=== PATIENT | male | born 1930 ===

== ENCOUNTER 2016-06-15 11:27 | Day surgery (SDC) | payer MEDICARE ==
[2016-06-07 16:00] VITALS: BMI 20.2
[~2016-06-15 11:27] MED LIST: FAMOTIDINE 20 MG/2 ML VIAL IV PRN; HEPARIN SODIUM,PORCINE 5,000 UNIT/ML 1 ML VIAL SQ ONE; HYDROmorphone 1 MG/ML 1 ML SYRINGE IVP PRN; LIDOCAINE 1% 20 ML VIAL (10MG/ML) FOR IV START INTRADERMA PRN; ONDANSETRON 4 MG/2 ML VIAL IVP ONE
[2016-06-15 12:29] LABS: Glucose,Whole Blood 266 mg/dL (75-99)
[2016-06-15] MEDS ORDERED: LACTATED RINGERS 1,000 ML IV ONE ×2 (12:34→14:52)
[2016-06-15] MEDS: LACTATED RINGERS 1,000 ML IV SCH (12:34)
--- NOTE | 2016-06-15 13:11 | P.GSHP ---
History of Present Illness H&P Date: 06/15/16 Chief Complaint: Right inguinal hernia This a 85-year-old male referred from Dr. Raza. Patient has developed a right inguinal hernia. He presents today for laparoscopic robotic assistance repair. - Constitutional Constitutional: Reports as per HPI Past Medical History Past Medical History: Atrial Fibrillation, COPD, Diabetes Mellitus, Hyperlipidemia, Hypertension, Osteoarthritis (OA), Thyroid Disorder Additional Past Medical History / Comment(s): RT INGUINAL HERNIA History of Any Multi-Drug Resistant Organisms: None Reported Past Surgical History: Adenoidectomy, Cholecystectomy, Hernia Repair, Joint Replacement, Orthopedic Surgery, Tonsillectomy Additional Past Surgical History / Comment(s): LEFT KNEE ARTHROSCOPIC, LEFT KNEE REPLACEMENT,LEFT KIDNEY CYST REMOVED, RIGHT SHOULDER,BILATERAL CATARACT SURGERY, COLONOSCOPY, Past Anesthesia/Blood Transfusion Reactions: No Reported Reaction Past Psychological History: No Psychological Hx Reported Smoking Status: Former smoker Past Alcohol Use History: Occasional Additional Past Alcohol Use History / Comment(s): STARTED SMOKING AT AGE 18 QUIT AT AGE 38 SMOKED 1/2 PPD Past Drug Use History: None Reported - Past Family History Mother Family Medical History: No Reported History Son(s) Family Medical History: Cancer Additional Family Medical History / Comment(s): TESTICLE CANCER Medications and Allergies Home Medications Medication Instructions Recorded Confirmed Type ALPRAZolam [Xanax] 0.25 mg PO HS PRN 04/13/16 06/15/16 History Aspirin 81 mg PO DAILY 04/13/16 06/15/16 History Benazepril HCl [Lotensin] 40 mg PO DAILY 04/13/16 06/07/16 History Fluticasone Propionate [Flovent 50 mcg IH DAILY PRN 04/13/16 06/07/16 History Diskus] Hydrochlorothiazide 25 mg PO DAILY 04/13/16 06/15/16 History Levothyroxine Sodium [Synthroid] 50 mcg PO DAILY 04/13/16 06/07/16 History Metoprolol Succinate [Toprol XL] 100 mg PO 1400 04/13/16 06/15/16 History Pravastatin Sodium [Pravachol] 10 mg PO HS 04/13/16 06/15/16 History amLODIPine [Norvasc] 10 mg PO DAILY 04/13/16 06/07/16 History Acetaminophen Tab [Tylenol Tab] 1,000 mg PO DAILY PRN 06/07/16 06/15/16 History Ca Carbonate/Vitamin D3/Vit K 1 each PO BID 06/07/16 06/15/16 History [Citracal Soft Chew] Cholecalciferol [Vitamin D3] 1,000 unit PO DAILY 06/07/16 06/07/16 History Multivit-Min/FA/Lycopene/Lut 1 each PO DAILY 06/07/16 06/15/16 History [Centrum Silver Tablet] Pregabalin [Lyrica] 50 - 100 mg PO HS 06/07/16 06/15/16 History metFORMIN HCL [Glucophage] 500 mg PO BID 06/07/16 06/15/16 History Allergies Allergy/AdvReac Type Severity Reaction Status Date / Time propoxyphene Allergy Nausea & Verified 06/15/16 12:19 [From ToneN] Vomiting Surgical - Exam Vital Signs Temp Pulse Resp BP Pulse Ox 97.5 F L 62 16 166/66 97 06/15/16 12:30 06/15/16 12:30 06/15/16 12:30 06/15/16 12:30 06/15/16 12:30 - General well developed, no distress - Eyes PERRL - ENT normal pinna - Neck no masses - Respiratory normal expansion - Cardiovascular Rhythm: regular - Abdomen Abdomen: soft, tender Hernia: inguinal (Reducible right inguinal hernia) Results - Labs Abnormal Lab Results - Last 24 Hours (Table) 06/15/16 Range/Units 12:26 POC Glucose (mg/dL) 266 H (75-99) mg/dL Assessment and Plan Plan: Right inguinal hernia. We'll perform laparoscopic robotic system repair.
[2016-06-15] MEDS ORDERED: BUPIVACAIN-EPI 0.25%-1:200,000 30 ML VIAL SQ ONE ×2 (13:17→14:00)
[2016-06-15] MEDS: ceFAZolin 2 GM in SODIUM CHLORIDE 0.9% 100 ML IVPB ONE ×3 (13:19→18:12)
[2016-06-15] MEDS ORDERED: PROPOFOL 10 MG/ML 20 ML VIAL IV ONE (13:27)
[2016-06-15] MEDS ORDERED: GLYCOPYRROLATE 0.2 MG/ML 2 ML VIAL ONE (13:27)
[2016-06-15] MEDS ORDERED: ceFAZolin 10 GM VIAL IVPB ONE (13:27)
[2016-06-15] MEDS ORDERED: MIDAZOLAM 2 MG/2 ML VIAL ONE (13:27)
[2016-06-15] MEDS ORDERED: SUCCINYLCHOLINE CHLORIDE 100 MG/5 ML SYR IV ONE (13:27)
[2016-06-15] MEDS ORDERED: fentaNYL (PF) 50 MCG/ML 2 ML AMP ONE (13:27)
[2016-06-15] MEDS ORDERED: NEOSTIGMINE 1 MG/ML 10 ML VIAL ONE (13:27)
[2016-06-15] MEDS ORDERED: ePHEDrine 50 MG/ML 1 ML AMP ONE (13:27)
[2016-06-15] MEDS ORDERED: LIDOCAINE 1% INJ 10MG/ML (20 ML MDV) ONE (13:27)
[2016-06-15] MEDS ORDERED: ROCURONIUM BROMIDE 10 MG/ML 10 ML VIAL IV ONE (13:27)
[2016-06-15] MEDS ORDERED: SODIUM CHLORIDE 0.9% 100 ML BAG ONE (13:27)
--- NOTE | 2016-06-15 14:50 | P.OP ---
Date of Procedure: 06/15/16 Preoperative Diagnosis: Right inguinal hernia Postoperative Diagnosis: Right inguinal hernia Procedure(s) Performed: Laparoscopic robotic-assisted repair of right inguinal hernia Anesthesia: JELLY Surgeon: Nolan Márquez Estimated Blood Loss (ml): 5 Condition: stable Disposition: PACU Description of Procedure: Lhe patient's placed on the operating table in the supine position. The patient received general anesthesia. The patient's abdomen was prepped and draped in usual sterile fashion. The skin was anesthetized 1% local Xylocaine at the incision sites. Using an 11 blade a skin incision was made at the umbilicus. The fascia was grasped with a Henley and then the peritoneal cavity was entered with the Veress needle. Position of the Veress needle was confirmed with a positive drop test. After adequate insufflation a 5 mm trocar was placed into the peritoneal cavity. The Laparoscope was placed the peritoneal cavity. And a robotic 8 mm trocar was placed in the right lateral position and then another 8 mm robotic trochars placed in the left lateral position. The original 5 mm trocar was exchanged for a 12 mm trocar. The patient was placed in reverse Trendelenburg and then the patient was docked to the robot. Next the peritoneum over top of the hernia was incised and then using blunt and sharp dissection and electrocautery the hernia sac was dissected free from the floor of the inguinal canal. The hernia sac was completely reduced into the peritoneal cavity. And then using the Pro composition stone applicator mesh the hernia was repaired. The peritoneum was then sutured with 20V lock suture. The patient was then undocked the robot. The needle was withdrawn from the peritoneal cavity. The umbilical trocar site was closed with 0 Ethibond suture. The skin was closed interrupted 3-0 Monocryl suture. Dermabond dressing was applied. Patient was sent to recovery in stable condition.
[2016-06-15] MEDS ORDERED: NALOXONE 0.4 MG/ML 1 ML VIAL IV PRN (14:52)
[2016-06-15] MEDS ORDERED: HYDROmorphone 1 MG/ML 1 ML SYRINGE IVP PRN (14:52)
[2016-06-15] MEDS ORDERED: ONDANSETRON 4 MG/2 ML VIAL IVP PRN (14:52)
[2016-06-15] MEDS ORDERED: INSULIN LISPRO (humaLOG) 300 UNIT/3 ML VIAL SQ ONE (15:43)
[2016-06-15 15:52] LABS: Glucose,Whole Blood 276 mg/dL (75-99)
[2016-06-15] MEDS ORDERED: FLUTICASONE 50MCG/SPRAY NASAL 16GM EA NOSTRIL PRN (18:04)
[2016-06-15] MEDS ORDERED: ALPRAZolam 0.25 MG TAB PO PRN (18:04)
[2016-06-15] MEDS: amLODIPine 10 MG TAB PO SCH (19:44)
[2016-06-15 20:41] LABS: Glucose,Whole Blood 240 mg/dL (75-99)
[2016-06-15] MEDS ORDERED: PRAVASTATIN SODIUM 20 MG TAB PO SCH (21:00)
[2016-06-15] MEDS ORDERED: PREGABALIN 50 MG CAP PO SCH (21:00)
[2016-06-15] MEDS: HEPARIN SODIUM,PORCINE 5,000 UNIT/ML 1 ML VIAL SQ SCH (21:46)
[2016-06-15] MEDS: INSULIN LISPRO (humaLOG) 300 UNIT/3 ML VIAL SQ SCH (21:47)
[2016-06-15] MEDS: metFORMIN 500 MG TAB PO SCH (21:47)
[2016-06-15] MEDS: ACETAMINOPHEN TAB 500 MG TAB PO PRN (21:58)
[2016-06-16] MEDS ORDERED: LEVOTHYROXINE 50 MCG TAB PO SCH (06:30)
[2016-06-16 06:58] LABS: Glucose,Whole Blood 301 mg/dL (75-99)
[2016-06-16 07:18] LABS: Basophils % (A) 0 %; CH 32.9; CHCM 34.4; Eosinophils # (A) 0.1 k/uL (0-0.7); Eosinophils % (A) 1 %; HCT 35.2 % (39.0-53.0); HDW 2.41; HGB 11.7 gm/dL (13.0-17.5); Luc # (Auto) 0.07; Luc % (Auto) 1; Lymphocytes # (A) 0.7 k/uL (1.0-4.8); Lymphocytes % (A) 15 %; MCH 31.9 pg (25.0-35.0); MCHC 33.2 g/dL (31.0-37.0); MCV 96.3 fL (80.0-100.0); Mean Platelet Volume 8.7; Monocytes # (A) 0.4 k/uL (0-1.0); Monocytes % (A) 9 %; Neutrophils # (A) 3.6 k/uL (1.3-7.7); Neutrophils % (A) 73 %; RBC 3.66 m/uL (4.30-5.90); RDW 12.8 % (11.5-15.5); WBC 4.9 k/uL (3.8-10.6); WBC (Perox) 5.25
[2016-06-16 07:33] LABS: Calcium 10.3 mg/dL (8.4-10.2); Potassium 3.8 mmol/L (3.5-5.1)
[2016-06-16] MEDS: LACTATED RINGERS 1,000 ML IV SCH (07:43)
[2016-06-16] MEDS: metFORMIN 500 MG TAB PO SCH (07:45)
[2016-06-16] MEDS: HEPARIN SODIUM,PORCINE 5,000 UNIT/ML 1 ML VIAL SQ SCH (07:48)
[2016-06-16] MEDS: INSULIN LISPRO (humaLOG) 300 UNIT/3 ML VIAL SQ SCH (07:48)
[2016-06-16 07:59] VITALS: PULSE 74; RESP 16; TEMP 97
[2016-06-16] MEDS: ACETAMINOPHEN TAB 500 MG TAB PO PRN (08:10)
[2016-06-16] MEDS: amLODIPine 10 MG TAB PO SCH (08:10)
[2016-06-16 08:33] VITALS: BP 160/70
[2016-06-16] MEDS ORDERED: hydrALAZINE HCL 20 MG/ML 1 ML VIAL IVP PRN (08:55)
[2016-06-16] MEDS ORDERED: LISINOPRIL 20 MG TAB PO SCH ×2 (09:00)
[2016-06-16] MEDS ORDERED: HYDROCHLOROTHIAZIDE 25 MG TAB PO SCH (09:00)
[2016-06-16] MEDS ORDERED: ASPIRIN 81 MG CHEW PO SCH (09:00)
[2016-06-16 09:01] LABS: Hemoglobin A1C 9.3 % (4.2-6.1)
[2016-06-16] MEDS ORDERED: CHOLECALCIFEROL 1,000 UNIT TAB PO SCH (12:00)
[2016-06-16] MEDS ORDERED: METOPROLOL SUCCINATE (ER) 100 MG TAB.ER.24H PO SCH (14:00)
[2016-06-17] MEDS ORDERED: LISINOPRIL 20 MG TAB PO SCH (09:00)
--- NOTE | 2016-06-17 19:32 | P.DS ---
Providers Date of admission: 06/15/2016 Expected date of discharge: 06/16/16 Attending physician: Nolan Márquez Consults: 06/15/16 14:52 Consult Physician Routine Consulting Provider: Lux Raza Reason/Comments: Medical management Do you want consulting provider notified?: Yes Primary care physician: Lux Raza [facility] Course: Patient is an 85-year-old male referred from Dr. Raza admitted for elective laparoscopic robotic-assisted repair of right inguinal hernia. Patient tolerated procedure well. Postoperatively, patient had some intractable abdominal pain and was observed overnight with relief of pain in the morning. Patient was deemed able for discharge to home with close follow- up in the outpatient setting. Discharge diagnoses: Right inguinal hernia status post left endoscopic robotic-assisted repair. The above impression and plan have been discussed and directed by Dr. Márquez. Luciana SWEET acting as scribe for Dr. Márquez. Procedures: Laparoscopic robotic-assisted repair of right inguinal hernia Patient Condition at Discharge: Good Plan - Discharge Summary New Discharge Prescriptions: HYDROcodone/APAP 7.5-325MG [Hays 7.5-325] 1 tab PO Q6HR PRN #28 tab PRN Reason: Pain Discharge Medication List ALPRAZolam [Xanax] 0.25 mg PO HS PRN 04/13/16 [History] Aspirin 81 mg PO DAILY 04/13/16 [History] Benazepril HCl [Lotensin] 40 mg PO DAILY 04/13/16 [History] Fluticasone Propionate [Flovent Diskus] 50 mcg IH DAILY PRN 04/13/16 [History] Hydrochlorothiazide 25 mg PO DAILY 04/13/16 [History] Levothyroxine Sodium [Synthroid] 50 mcg PO DAILY 04/13/16 [History] Metoprolol Succinate [Toprol XL] 100 mg PO 1400 04/13/16 [History] Pravastatin Sodium [Pravachol] 10 mg PO HS 04/13/16 [History] amLODIPine [Norvasc] 10 mg PO DAILY 04/13/16 [History] Acetaminophen Tab [Tylenol] 1,000 mg PO DAILY PRN 06/07/16 [History] Ca Carbonate/Vitamin D3/Vit K [Citracal Soft Chew] 1 each PO BID 06/07/16 [ History] Cholecalciferol [Vitamin D3] 1,000 unit PO DAILY 06/07/16 [History] Multivit-Min/FA/Lycopene/Lut [Centrum Silver Tablet] 1 each PO DAILY 06/07/16 [ History] Pregabalin [Lyrica] 50 - 100 mg PO HS 06/07/16 [History] metFORMIN HCL [Glucophage] 500 mg PO BID 06/07/16 [History] HYDROcodone/APAP 7.5-325MG [Hays 7.5-325] 1 tab PO Q6HR PRN #28 tab 06/16/16 [ Rx] Follow up Appointment(s)/Referral(s): Lux Raza MD [Primary Care Provider] - 06/22/16 9:15 am Nolan Márquez MD [STAFF PHYSICIAN] - 06/23/16 3:20 pm Patient Instructions/Handouts: Laparoscopic Herniorrhaphy (DC), Skin Adhesive Care (DC) Activity/Diet/Wound Care/Special Instructions: No heavy lifting, pushing, or pulling items greater than 10 pounds. Soft regular diet Shower daily, no soaking in bath tubs, pools, or hot tubs. No driving while taking pain medication. Notify surgeon with any signs or symptoms of infection, increased pain, or not tolerating diet. Discharge Disposition: HOME SELF-CARE
== END 2016-06-16 10:35 | disposition home or self-care (01) ==
LOC: OR 11:27 → 3SUR 14:48 → OR 06-16 10:35
PROVIDERS: ATTEND Surgery
DX: K40.90 Unilateral inguinal hernia, without obstruction or gangrene, not specified as recurrent (principal); I48.91 Unspecified atrial fibrillation; J44.9 Chronic obstructive pulmonary disease, unspecified; E11.9 Type 2 diabetes mellitus without complications; E78.5 Hyperlipidemia, unspecified; I10 Essential (primary) hypertension; M19.90 Unspecified osteoarthritis, unspecified site; E07.9 Disorder of thyroid, unspecified; F41.9 Anxiety disorder, unspecified; Z79.82 Long term (current) use of aspirin; Z79.899 Other long term (current) drug therapy; Z88.8 Allergy status to other drugs, medicaments and biological substances; Z87.891 Personal history of nicotine dependence
CPT/HCPCS: 49650; 80048; 83036; 85025; C1781; J2250; J1644 ×2; J2710; J0690; J2405; J2001; J3010; J1170; J0330; J2704

== ENCOUNTER → 2016-06-23 | Outpatient (CLI) | payer MEDICARE ==
--- NOTE | 2016-06-23 13:18 | CT ---
EXAMINATION TYPE: CT abdomen pelvis wo con DATE OF EXAM: 06/23/2016 1:04 PM COMPARISON: Ultrasound 05/20/2016 HISTORY: Proteinuria. CKD. Urine retention. CT DLP: 292.50 mGycm Automated exposure control for dose reduction was used. TECHNIQUE: Helical acquisition of images was performed from the lung bases through the pelvis. FINDINGS: LUNG BASES: No significant abnormality is appreciated. LIVER/GB: No significant abnormality is appreciated. PANCREAS: There is a calcification in the region of the pancreatic bed near the expected location of the uncinate process. The pancreatic body and majority of the head appear to be somewhat atrophied. T his could represent a small uncinate process lesion. SPLEEN: No significant abnormality is seen. ADRENALS: No significant abnormality is seen. KIDNEYS: There is a 7mm and 3mm hyperdense lesion involving the right kidney. 1.4 cm hypodense lesion midpole left kidney. 2 mm anterior calyx nonobstructing right renal stone. No hydronephrosis. RETROPERITONEAL ADENOPATHY: None visualized URINARY BLADDER: No significant abnormality is seen. PELVIC ADENOPATHY: None visualized. OSSEOUS STRUCTURES: Arthropathy of the hips and hypertrophic and degenerative change of the spine no jonathan. Canal stenosis involving the lower lumbar spine noted. BOWEL: Diverticulosis of the colon with no CT evidence of diverticulitis. OTHER: Atherosclerotic change of the aorta and vasculature. Small bladder diverticulum noted along th e anterior lateral margin of the bladder. Prostate gland is enlarged. There is a ill-defined hypodens ity near the right inguinal canal which may be related to a fat-containing inguinal hernia. No bowel content. There does appear to be mild inflammation. This extends into the right pelvic basin. IMPRESSION: INDETERMINATE RENAL LESIONS INCLUDING A HYPERDENSE LESION INVOLVING THE RIGHT KIDNEY. LACK OF CONTRAS T LIMITS ASSESSMENT. MAY REPRESENT A HEMORRHAGIC CYST. ADDITIONAL HYPODENSITIES HAVE BEEN SEEN AND RE PRESENT SIMPLE CYSTS BY PREVIOUS ULTRASOUND MILD FULLNESS OF THE UNCINATE PROCESS OF THE PANCREAS WITH AREAS OF CALCIFICATION COULD BE RELATED TO CHRONIC PANCREATITIS. THE FULLNESS RELATIVE TO THE ATROPHIED REMAINING PORTION OF THE PANCREAS PARTI CULARLY ON IMAGE 35 THROUGH 37. FOLLOW-UP MRI COULD BE OBTAINED TO EXCLUDE PANCREATIC LESION. MILD INFLAMMATORY CHANGES NEAR THE RIGHT INGUINAL CANAL WHICH APPEARS TO CONTAIN A FAT-CONTAINING HE RNIA BUT NO BOWEL CORRELATE CLINICALLY. PROSTATE ENLARGEMENT WITH DISTENDED BLADDER CORRELATE FOR URINARY TRACT OUTLET OBSTRUCTION.
== END | disposition home or self-care (01) ==
LOC: RADCTMAIN 12:40
PROVIDERS: ATTEND Family Medicine
DX: N50.89 Other specified disorders of the male genital organs (principal); N32.89 Other specified disorders of bladder; N40.0 Benign prostatic hyperplasia without lower urinary tract symptoms
CPT/HCPCS: 74176

== ENCOUNTER → 2016-11-09 | Outpatient (CLI) | payer MEDICARE ==
--- NOTE | 2016-11-09 14:40 | XR ---
EXAMINATION TYPE: XR foot complete RT DATE OF EXAM: 11/09/2016 COMPARISON: NONE HISTORY: Osteomyelitis of acute TECHNIQUE: 3 views right foot FINDINGS: Hallux valgus deformity is present of the great toe. There is varus deformity of the third fourth and fifth distal digits. No acute fractures are evident. Plantar calcaneal heel spur is present. No suspicious cortical erosion is evident. Degenerative changes at the first tarsal metatarsal juncti on. IMPRESSION: 1. No suspicious changes for osteomyelitis. 2. Chronic changes discussed above
== END | disposition home or self-care (01) ==
LOC: RADXRMAIN 14:18
PROVIDERS: ATTEND Podiatrist Foot Surgery
DX: M86.271 Subacute osteomyelitis, right ankle and foot (principal)

== ENCOUNTER → 2017-02-07 | Outpatient (CLI) | payer MEDICARE ==
--- NOTE | 2017-02-07 15:33 | XR ---
EXAMINATION TYPE: XR lumbosacral spine min 4V , 5 VIEWS DATE OF EXAM ORDERED: 02/07/2017 HISTORY: M54.16 radiculopathy. COMPARISON: None. FINDINGS: There is a gentle levoscoliosis. Vertebral body height and alignment are maintained. There is no spondylolysis or spondylolisthesis. T here is mild, diffuse disc space loss. There is extensive hypertrophic spondylosis and spondylosis de formans. There is mild facet arthropathy in the lower lumbar facets. The pedicles are intact. There a re scattered, well-defined calcifications distributed throughout the abdomen. I'm uncertain as to the etiology of these. IMPRESSION: 1. NO ACUTE OSSEOUS LESION. 2. MODERATELY SEVERE DEGENERATIVE CHANGE.
== END | disposition home or self-care (01) ==
LOC: RADXRMAIN 14:43
PROVIDERS: ATTEND Family Medicine
DX: M47.27 Other spondylosis with radiculopathy, lumbosacral region (principal)
CPT/HCPCS: 72110

== ENCOUNTER → 2017-03-08 | Outpatient (CLI) | payer MEDICARE ==
--- NOTE | 2017-03-08 09:54 | US ---
EXAMINATION TYPE: US venous doppler duplex LE DATE OF EXAM: 03/08/2017 9:00 AM COMPARISON: NONE CLINICAL HISTORY: M79.604,M79.605 Pain in right and left leg. Wound bottom of right foot for 8 month s, diabetes LOWER EXTREMITY VENOUS INSUFFICIENCY SIDE PERFORMED: bilateral 1) Color flow is present and patency is documented in the following vessels. No DVT or SVT is noted . EIV Common Femoral Vein Deep Femoral Vein Femoral Vein Popliteal Vein Proximal Calf Veins Greater Saph Vein Upper Small Saph Vein 2) There is venous reflux noted at the following venous levels: Minimal reflux noted right greater saph. vein. Complex anechoic area right popliteal fossa = 5.5 x 1.8 x 4.2cm, probable Leslie's cyst There is moderate-sized popliteal cyst in the right lower extremity marked in mid aspect of study. IMPRESSION: No ultrasound evidence for acute DVT in either lower extremity.
== END | disposition home or self-care (01) ==
LOC: RADUSWWP 08:19
PROVIDERS: ATTEND Family Medicine
DX: M79.604 Pain in right leg (principal); M79.605 Pain in left leg; E13.621 Other specified diabetes mellitus with foot ulcer
CPT/HCPCS: 93923; 93970

== ENCOUNTER → 2017-03-16 | Outpatient (CLI) | payer MEDICARE ==
[2017-03-16 16:13] LABS: CH 32.7; CHCM 33.7; HCT 35.6 % (39.0-53.0); HDW 2.23; HGB 11.5 gm/dL (13.0-17.5); MCH 31.4 pg (25.0-35.0); MCHC 32.3 g/dL (31.0-37.0); MCV 97.4 fL (80.0-100.0); Mean Platelet Volume 8.5; RBC 3.65 m/uL (4.30-5.90); RDW 13.3 % (11.5-15.5); WBC 5.1 k/uL (3.8-10.6)
[2017-03-16 16:18] LABS: Appearance,Urine Clear (Clear); Bilirubin,Urine Negative (Negative); Glucose,Urine (UA) Negative (Negative); Ketones,Urine Negative (Negative); Leukocyte Esterase,Urine Negative (Negative); Mucus,Urine Rare /hpf; Nitrite,Urine Negative (Negative); Particle Count 754; Protein,Urine 1+ (Negative); RBC,Urine <1 /hpf (0-5); Specific Gravity,Urine 1.011 (1.001-1.035); UA Billing (MACRO vs. MICRO) MICRO; Urobilinogen,Urine <2.0 mg/dL (<2.0); WBC,Urine 1 /hpf (0-5)
[2017-03-16 16:25] LABS: Calcium 10.7 mg/dL (8.4-10.2); Magnesium 2.1 mg/dL (1.6-2.3); Potassium 3.9 mmol/L (3.5-5.1); Total Bilirubin 0.4 mg/dL (0.2-1.3); Total Protein 6.4 g/dL (6.3-8.2)
[2017-03-17 01:00] LABS: Iron Saturation 21.61 (15.00-50.00)
[2017-03-17 05:34] LABS: Urine Creatinine 74.7 mg/dL
== END | disposition home or self-care (01) ==
LOC: LABWHC1 15:35
PROVIDERS: ATTEND Internal Medicine
DX: E55.9 Vitamin D deficiency, unspecified (principal); N39.0 Urinary tract infection, site not specified; D64.1 Secondary sideroblastic anemia due to disease; N18.3 Chronic kidney disease, stage 3 (moderate); N25.81 Secondary hyperparathyroidism of renal origin
CPT/HCPCS: 36415; 80053; 81001; 82043; 82306; 82570; 82728; 83540; 83550; 83735; 83970; 84100; 84156; 84550; 85027

== ENCOUNTER → 2017-03-24 | Outpatient (CLI) | payer MEDICARE ==
--- NOTE | 2017-03-26 13:01 | MR ---
EXAMINATION TYPE: MR lumbar spine wo con DATE OF EXAM: 03/24/2017 COMPARISON: NONE HISTORY: 86-year-old male Back pain TECHNIQUE: Multiplanar, multisequence images of the lumbar spine were acquired. Findings: Vertebral body heights are preserved and alignment is maintained. No suspicious bone marrow placement. Mild heterogeneity of marrow signal. Variable mild intervertebral disc desiccation but with bulging discs. Additional facet arthropathy mi d to lower lumbar spine with ligamentum flavum thickening. Conus medullaris is normal. At T12-L1, no canal or foraminal stenosis. At L1-L2, no canal or foraminal stenosis. At L2-L3, diffuse disc bulge with facet arthropathy and ligamentum flavum thickening. Changes result in mild narrowing of the spinal canal with minimal inferior foraminal narrowing on the left. At L3-L4, diffuse disc bulge with ligamentum flavum thickening and facet arthropathy. Changes result in mild spinal canal stenosis with mild bilateral neuroforaminal stenosis. At L4-L5, there is hypertrophic facet arthropathy with ligamentum flavum thickening and bulging disc. Changes result in moderate to severe spinal canal stenosis at this level with mild left neuroforamin al stenosis. At L5-S1, there is facet arthropathy with ligamentum flavum thickening and diffuse bulging disc. No s giuliana canal stenosis. Changes result in moderate left neuroforaminal stenosis. Disc material and thic kened ligamentum flavum abuts both traversing S1 nerve roots. 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 A few cysts are noted within the kidneys measuring up to 3.0 cm on the left. No prevertebral or parav ertebral soft tissue is seen. Ectasia of the upper abdominal aorta at 2.7 cm. IMPRESSION: 1. Ihdg-pb-[id number] multilevel degenerative disc disease. There is superimposed facet arthropathy and ligamentum flavum thickening. 2. Changes are greatest at L4-L5 where there is a moderate to severe spinal canal stenosis. Mild left neuroforaminal stenosis. 3. Facet arthropathy, ligamentum flavum thickening, and bulging disc causes moderate left neuroforami nal stenosis at L5-S1. However, there appears to be abutment of both traversing S1 nerve roots at thi s level. 4. Mild spinal canal narrowing at both L2-L3 and L3-L4.
== END | disposition home or self-care (01) ==
LOC: RADMRIMAIN 13:38
PROVIDERS: ATTEND Family Medicine
DX: M48.061 Spinal stenosis, lumbar region without neurogenic claudication (principal); M99.73 Connective tissue and disc stenosis of intervertebral foramina of lumbar region; M51.17 Intervertebral disc disorders with radiculopathy, lumbosacral region; M46.97 Unspecified inflammatory spondylopathy, lumbosacral region; M24.28 Disorder of ligament, vertebrae
CPT/HCPCS: 72148

== ENCOUNTER → 2017-04-17 | Outpatient (CLI) | payer MEDICARE ==
--- NOTE | 2017-04-18 08:46 | MR ---
EXAMINATION TYPE: MR foot RT wo/w con DATE OF EXAM: 04/17/2017 COMPARISON: Right foot radiograph dated 11/09/2016. HISTORY: Diabetes mellitus with ulceration of the soft tissues of the plantar aspect of the first dig it. CONTRAST: Standard multiplanar, multisequence MRI departmental protocol utilizing 6.5 mL intravenous Gadavist g adolinium contrast. FINDINGS: On T1 nonfat sequences there is T1 hypointense edema at the plantar surface of the first metatarsal p halangeal joint spanning 3.9 cm in anterior posterior dimension without underlying focal fluid collec tion. There is no cortical erosion or T1 hypointense bone marrow signal to suggest osteomyelitis alth ough the subcutaneous edema/inflammatory change abuts the inferior cortical surface. At the dorsal as pect of the first metatarsal phalangeal joint there is also a small effusion that is T2 hyperintense and T1 nonfat sat hypointense measuring 1.1 x 0.6 cm in anterior posterior by saini caudal dimension. No increased signal is seen of the distal flexor tendons to suggest reactive tendinopathy. T1 hypoin tense infiltrating subcutaneous edema to a lesser degree is seen throughout the entirety of the right lower extremity. There is enhancement of the inflammatory change without periosteal or osseous marro w enhancement or focal peripherally enhancing abscess. Marginal osteophytes, bony irregularity and subchondral loss are seen at the talonavicular joint and tarsometatarsal joints compatible with moderate arthropathy of the midfoot. This is also seen in the visualized portions of the subtalar joint. IMPRESSION: 1. Phlegmonous inflammatory change and focal edema at the site of ulceration at the plantar aspect of the first metatarsal phalangeal joint and dorsal to the first proximal phalanx with small amount of joint fluid, likely reactive. No MR evidence of osteomyelitis or bone marrow replacing process. No fo ta fluid collection to suggest abscess. Additionally there is moderate diffuse infiltrating subcutan eous edema throughout the right lower extremity. 2. Moderate midfoot arthropathy.
== END | disposition home or self-care (01) ==
LOC: RADMRIMAIN 12:36
PROVIDERS: ATTEND Family Medicine
DX: E11.621 Type 2 diabetes mellitus with foot ulcer (principal); M12.871 Other specific arthropathies, not elsewhere classified, right ankle and foot
CPT/HCPCS: 73720; A9581

== ENCOUNTER → 2017-05-01 | Outpatient (CLI) | payer MEDICARE ==
[2017-04-28 11:33] VITALS: BMI 21.7
--- NOTE | 2017-05-01 13:26 | P.CONS ---
History of Present Illness - Reason for Consult Consult date: 05/01/17 - Chief Complaint Lower back pain - History of Present Illness This is a pleasant 86-year-old male with chronic history of lower back pain with radiation to the right lower extremity to the mid calf area. The patient denies any numbness or tingling in the lower extremities. He denies any bowel or bladder dysfunction or any weight loss recently. The pain does not wake the patient up at night. The patient has a history of diabetes with new ulcer on his right foot that is being treated and followed by vascular and infectious services. The patient states that he used to get epidural steroid injection once every 6 months when he used to live in [place] and it usually helps his pain significantly. 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 Past Medical History Past Medical History: Atrial Fibrillation, COPD, Diabetes Mellitus, Hyperlipidemia, Hypertension, Osteoarthritis (OA), Renal Disease, Skin Disorder , Thyroid Disorder Additional Past Medical History / Comment(s): stage 3 kidney disease-sees kidney , RT FOOT WOUND History of Any Multi-Drug Resistant Organisms: None Reported Past Surgical History: Adenoidectomy, Cholecystectomy, Hernia Repair, Joint Replacement, Orthopedic Surgery, Tonsillectomy Additional Past Surgical History / Comment(s): LEFT KNEE ARTHROSCOPIC, LEFT KNEE REPLACEMENT,LEFT KIDNEY CYST REMOVED, RIGHT SHOULDER,BILATERAL CATARACT SURGERY, COLONOSCOPY, Past Anesthesia/Blood Transfusion Reactions: Previous Problems w/ Anesthesia Additional Past Anesthesia/Blood Transfusion Reaction / Comm: BP went very low w /one of surgeries Past Psychological History: No Psychological Hx Reported Smoking Status: Former smoker Past Alcohol Use History: Occasional Additional Past Alcohol Use History / Comment(s): STARTED SMOKING AT AGE 18 QUIT AT AGE 38 SMOKED 1/2 PPD Past Drug Use History: None Reported - Past Family History Mother Family Medical History: No Reported History Son(s) Family Medical History: Cancer Additional Family Medical History / Comment(s): TESTICLE CANCER Medications and Allergies Home Medications Medication Instructions Recorded Confirmed Type ALPRAZolam [Xanax] 0.25 mg PO HS PRN 04/13/16 05/01/17 History Aspirin 81 mg PO DAILY 04/13/16 05/01/17 History Benazepril HCl [Lotensin] 40 mg PO DAILY 04/13/16 05/01/17 History Hydrochlorothiazide 25 mg PO DAILY 04/13/16 05/01/17 History Levothyroxine Sodium [Synthroid] 50 mcg PO DAILY 04/13/16 05/01/17 History Pravastatin Sodium [Pravachol] 10 mg PO HS 04/13/16 05/01/17 History amLODIPine [Norvasc] 10 mg PO DAILY 04/13/16 05/01/17 History Acetaminophen Tab [Tylenol] 1,000 mg PO DAILY PRN 06/07/16 05/01/17 History Calcium Carb/Vitamin D3/Vit K1 1 each PO BID 06/07/16 05/01/17 History [Citracal Soft Chew] Cholecalciferol [Vitamin D3] 1,000 unit PO DAILY 06/07/16 05/01/17 History Multivit-Min/FA/Lycopen/Lutein 1 each PO DAILY 06/07/16 05/01/17 History [Centrum Silver Tablet] Pregabalin [Lyrica] 50 - 100 mg PO HS 06/07/16 05/01/17 History metFORMIN HCL [Glucophage] 1,000 mg PO QAM 06/07/16 05/01/17 History Linagliptin [Tradjenta] 5 mg PO DAILY 02/23/17 05/01/17 History Tamsulosin HCl [Flomax] 0.4 mg PO DAILY 02/23/17 05/01/17 History Carvedilol [Coreg] 25 mg PO DAILY 05/01/17 05/01/17 History glipiZIDE [Glucotrol] 5 mg PO DAILY 05/01/17 05/01/17 History Allergies Allergy/AdvReac Type Severity Reaction Status Date / Time propoxyphene Allergy Nausea & Verified 05/01/17 12:13 [From Darbarrycet-N] Vomiting Physical Exam - Constitutional General appearance: average body habitus - Respiratory Respiratory: bilateral: CTA - Cardiovascular Rhythm: regular - Integumentary Integumentary: no calor, no cellulitis, no cyanotic, no decreased turgor, no flushed, no jaundiced, no normal, no normal turgor, no pale, no rash, no ulcer - Psychiatric Psychiatric: A&O x's 3, appropriate affect, intact judgment & insight Neuro exam of the lower extremities showed normal muscle strength for knee flexion and extension ankle flexion and extension hip flexion adduction and abduction bilaterally and symmetrically. He has his left foot and aborted due to his the diabetic ulcer. Straight leg raising test negative bilaterally. He has mild tenderness in the right lumbar paravertebral area. No sacroiliac joint tenderness. No greater trochanter tenderness. He has decreased flexion of the lumbar spine. Facet loading test is positive on the right side. Assessment and Plan Plan: This is an 86-year-old male with history of diabetes, diabetic right foot ulcer , and lower back pain with radiation to the right lower extremity due to lumbar stenosis at the L4-5 level. The muscle strength and the deep tendon reflexes are normal in the lower extremities bilaterally. The patient usually gets good relief of his pain after lumbar epidural steroid injection that usually last for 6 months. At this point I will schedule patient is a patient to have interlaminar lumbar epidural steroid injection at the L4-5 level in the right paramedian approach under fluoroscopic guidance. The patient usually gets only one lumbar epidural steroid injection and we'll continue the same way he will call us back if he has any problems after his first injection. I thank you for the referral.
[2017-05-01 13:32] VITALS: BP 149/72; PULSE 63; RESP 16
== END | disposition home or self-care (01) ==
LOC: PNWHC3 12:04
PROVIDERS: ATTEND Anesthesiology
DX: M48.061 Spinal stenosis, lumbar region without neurogenic claudication (principal); E11.621 Type 2 diabetes mellitus with foot ulcer; Z87.891 Personal history of nicotine dependence; I48.91 Unspecified atrial fibrillation; J44.9 Chronic obstructive pulmonary disease, unspecified; E78.5 Hyperlipidemia, unspecified; I10 Essential (primary) hypertension; Z79.899 Other long term (current) drug therapy; Z79.82 Long term (current) use of aspirin; Z88.5 Allergy status to narcotic agent
CPT/HCPCS: 99211

== ENCOUNTER → 2017-06-28 | Outpatient (CLI) | payer MEDICARE ==
--- NOTE | 2017-07-05 13:33 | P.ARTDOP ---
Arterial Doppler LOWER EXTREMITY ARTERIAL DOPPLER: DATE OF SERVICE: 06/28/2017 multiphasic bilaterally throughout Reason for study: Right foot ulcer. Doppler waveforms: Multiphasic bilaterally throughout. Pulse volume recording: Fairly normal configuration. Pressure gradients: Only at the foot level. Ankle-brachial indices: Greater than 1 on the right and cannot be occluded on the left. Toe pressures: 48 on the right, 63 on the left Impression: Suspect moderate distal disease. Perfusion marginal for healing. Clinical correlation recommended.
== END | disposition home or self-care (01) ==
LOC: RADUSWWP 14:25
PROVIDERS: ATTEND Internal Medicine Infectious Disease
DX: E13.621 Other specified diabetes mellitus with foot ulcer (principal)
CPT/HCPCS: 93923

== ENCOUNTER → 2017-07-12 | Outpatient (CLI) | payer MEDICARE ==
[2017-07-12 18:19] LABS: Calcium 11.5 mg/dL (8.4-10.2); Magnesium 2.1 mg/dL (1.6-2.3); Phosphorus 3.2 mg/dL (2.5-4.5)
[2017-07-13 01:43] LABS: Parathyroid Hormone Intact 60.7 pg/mL (14.0-72.0)
== END | disposition home or self-care (01) ==
LOC: LABWHC1 16:51
PROVIDERS: ATTEND Family Medicine
DX: R42 Dizziness and giddiness (principal); E11.21 Type 2 diabetes mellitus with diabetic nephropathy; R80.9 Proteinuria, unspecified; N18.3 Chronic kidney disease, stage 3 (moderate)
CPT/HCPCS: 36415; 82306; 82310; 83735; 83970; 84100

== ENCOUNTER → 2017-07-25 | Outpatient (CLI) | payer MEDICARE ==
[2017-07-25 16:30] LABS: T4, Free (Free Thyroxine) 1.36 ng/dL (0.78-2.19)
[2017-07-25 17:13] LABS: Ionized Calcium 5.8 mg/dL (4.5-5.3)
== END | disposition home or self-care (01) ==
LOC: LABWHC1 14:59
PROVIDERS: ATTEND Family Medicine
DX: E83.52 Hypercalcemia (principal); R26.89 Other abnormalities of gait and mobility; R42 Dizziness and giddiness; R54 Age-related physical debility
CPT/HCPCS: 36415; 80048; 82330; 84439; 84443; 85025; 85652; 86140

== ENCOUNTER → 2017-08-01 | Outpatient (CLI) | payer MEDICARE ==
[2017-08-01 15:46] LABS: Albumin 3.4 g/dL (3.5-5.0); Calcium 10.6 mg/dL (8.4-10.2); Potassium 4.2 mmol/L (3.5-5.1); Total Bilirubin 0.3 mg/dL (0.2-1.3); Total Protein 5.8 g/dL (6.3-8.2)
== END | disposition home or self-care (01) ==
LOC: LABWHC1 15:14
PROVIDERS: ATTEND Family Medicine
DX: E83.52 Hypercalcemia (principal); R26.89 Other abnormalities of gait and mobility; M25.551 Pain in right hip
CPT/HCPCS: 36415; 80048; 80053; 85025; 85652; 86140

== ENCOUNTER → 2017-10-02 | Outpatient (CLI) | payer MEDICARE ==
[2017-10-02 15:23] LABS: Basophils % (A) 0 %; Eosinophils # (A) 0.2 k/uL (0-0.7); Eosinophils % (A) 3 %; HCT 33.5 % (39.0-53.0); Lymphocytes # (A) 1.2 k/uL (1.0-4.8); Lymphocytes % (A) 22 %; MCH 30.9 pg (25.0-35.0); MCHC 32.9 g/dL (31.0-37.0); MCV 93.9 fL (80.0-100.0); Mean Platelet Volume 8.3; Monocytes # (A) 0.4 k/uL (0-1.0); Monocytes % (A) 8 %; Neutrophils # (A) 3.5 k/uL (1.3-7.7); Neutrophils % (A) 66 %; Platelet Count 155 k/uL (150-450); RBC 3.56 m/uL (4.30-5.90); WBC 5.4 k/uL (3.8-10.6)
[2017-10-02 15:40] LABS: Calcium 10.6 mg/dL (8.4-10.2); Magnesium 1.9 mg/dL (1.6-2.3); Potassium 4.2 mmol/L (3.5-5.1)
[2017-10-03 00:45] LABS: Vitamin D 25 Hydroxy 36.4 ng/mL (30.0-100.0)
[2017-10-03 02:03] LABS: Parathyroid Hormone Intact 120.9 pg/mL (14.0-72.0)
== END | disposition home or self-care (01) ==
LOC: LABWHC1 14:59
PROVIDERS: ATTEND Family Medicine
DX: L57.0 Actinic keratosis (principal); M25.551 Pain in right hip; Z91.81 History of falling
CPT/HCPCS: 36415; 80048; 82306; 83735; 83970; 85025

== ENCOUNTER → 2017-11-03 | Outpatient (CLI) | payer MEDICARE ==
--- NOTE | 2017-11-05 08:34 | MR ---
EXAMINATION TYPE: MR angio head wo con, MR brain wo con DATE OF EXAM: 11/03/2017 COMPARISON: 05/18/2017 HISTORY: Dizziness and headaches TECHNIQUE: Multiplanar, multisequence images of the brain and brainstem is performed without IV contrast. Time o f flight images focusing on the [place] of [place] were performed without contrast. 2-D and 3-D postpr ocessing imaging is performed. FINDINGS: Diffusion weighted images demonstrate no evidence of a recent infarct or other diffusion ab normality. There is no extra-axial fluid collection. Periventricular and subcortical foci of T2/FLAI R hyperintensity are present in addition to a small old lacunar injury/area of gliosis within the lef t [place]. The ventricular system and cisternal spaces demonstrate symmetric prominence compatible with age-related volume loss. Accordingly there is thinning of the corpus callosum globally. Cerebral aqu educt is patent. Additionally more pronounced subarachnoid spaces are seen in the frontal regions, le ft greater than right compatible with subdural hygromas. Midline structures demonstrate normal morphology. The craniocervical junction appears within normal limits. The dural venous sinuses appear patent. There is mild mucosal thickening within the ethmoid s inuses and partial opacification of the bilateral mastoid air cells, left greater than right. Secreti ons are maintained within the posterior nasopharynx. Remaining visualized paranasal sinuses are well aerated. The globes are intact. The common carotid arteries are patent without hemodynamically significant stenosis, focal aneurysmal outpouching, or dissection. The [place] of [place] is intact. There is slight artifact in the middle c erebral arteries and anterior cerebral arteries as well as the anterior communicating artery although no gross evidence of sizable aneurysm or focal stenosis is seen. The vertebral arteries are codomina nt and patent as is the basilar artery. IMPRESSION: 1. No evidence of acute infarct or midline shift. 2. 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 3. 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 4. Partial opacification of the mastoid air cells, left greater than right. Correlate with pain to as sess for mastoiditis. 5. No evidence of focal stenosis, dissection or intracranial aneurysm.
== END | disposition home or self-care (01) ==
LOC: RADMRIMAIN 17:43
PROVIDERS: ATTEND Psychiatry & Neurology Neurology
DX: I73.9 Peripheral vascular disease, unspecified (principal); R90.89 Other abnormal findings on diagnostic imaging of central nervous system; Z87.828 Personal history of other (healed) physical injury and trauma
CPT/HCPCS: 70544; 70551

== ENCOUNTER → 2017-11-13 | Outpatient (CLI) | payer MEDICARE ==
[2017-11-13 14:58] LABS: Appearance,Urine Clear (Clear); Bilirubin,Urine Negative (Negative); Blood,Urine Negative (Negative); Color,Urine Light Yellow; Glucose,Urine (UA) Negative (Negative); Ketones,Urine Negative (Negative); Leukocyte Esterase,Urine Trace (Negative); Mucus,Urine Rare /hpf; Nitrite,Urine Negative (Negative); Protein,Urine 1+ (Negative); RBC,Urine <1 /hpf (0-5); Specific Gravity,Urine 1.012 (1.001-1.035); Urobilinogen,Urine <2.0 mg/dL (<2.0); WBC,Urine 2 /hpf (0-5)
[2017-11-13 15:06] LABS: Creatinine,Urine Random 57.3 mg/dL
[2017-11-13 15:15] LABS: Calcium 10.7 mg/dL (8.4-10.2); Potassium 4.3 mmol/L (3.5-5.1)
== END | disposition home or self-care (01) ==
LOC: LABWHC1 13:58
PROVIDERS: ATTEND Internal Medicine
DX: N18.3 Chronic kidney disease, stage 3 (moderate) (principal)
CPT/HCPCS: 36415; 80048; 81001; 82043; 82570; 83883; 84156; 86334

== ENCOUNTER → 2018-01-01 | Outpatient (CLI) | payer MEDICARE ==
--- NOTE | 2018-01-01 15:50 | XR ---
EXAMINATION TYPE: XR bone survey complete DATE OF EXAM: 01/01/2018 COMPARISON: None HISTORY: Monoclonal gammopathy TECHNIQUE: Multiple examinations were obtained for evaluation of the osseous structures. FINDINGS: CHEST: Heart size is normal. Pulmonary vasculature is normal. Suspicious lytic or sclerotic lesions a re not identified. Postsurgical changes at the right shoulder. Cervical spine: Degenerative changes are present. No lytic or sclerotic lesions are evident. Facet de generative changes are present. Degenerative disc changes are present. Bilateral humeri: Postsurgical changes at the right humeral head. Osteoarthritic degenerative changes at bilateral glenohumeral joint spaces. No suspicious lytic or sclerotic lesions are evident. Skull: Sella is unremarkable. No lytic or sclerotic lesions are evident. Patient is edentulous. Pelvis: Mild osteoarthritic degenerative changes at the bilateral hips. Sacroiliac joints are patent. No lytic or sclerotic lesions are evident. Scattered small calcifications over the inferior pole lef t kidney. Thoracic spine: 2 view thoracic spine is obtained. There are 12 thoracic type vertebral bodies. Pedic les are intact. Disc heights are preserved. No lytic or sclerotic lesions are evident. Lumbar spine: Spondylosis is present. There 5 lumbar-type vertebral bodies. The pedicles are intact. Alignment is normal. Vertebral body heights are preserved. Femurs: Bilateral femurs are examined in AP projections. Vascular calcification is present. Degenerat kory joint changes are at the bilateral hips. No lytic or sclerotic lesions are evident. Left knee pro sthesis is present. IMPRESSION: 1. No suspicious lytic lesions identified
== END | disposition home or self-care (01) ==
LOC: RADXRMAIN 11:33
PROVIDERS: ATTEND Internal Medicine Hematology & Oncology
DX: D47.2 Monoclonal gammopathy (principal); I12.9 Hypertensive chronic kidney disease with stage 1 through stage 4 chronic kidney disease, or unspecified chronic kidney disease; N18.9 Chronic kidney disease, unspecified; E11.9 Type 2 diabetes mellitus without complications
CPT/HCPCS: 77075

== ENCOUNTER → 2018-02-09 | Outpatient (CLI) | payer MEDICARE ==
[2018-02-09 10:56] LABS: HCT 30.5 % (39.0-53.0); HGB 9.6 gm/dL (13.0-17.5); Hypochromasia Slight; MCH 31.3 pg (25.0-35.0); MCHC 31.5 g/dL (31.0-37.0); MCV 99.6 fL (80.0-100.0); Mean Platelet Volume 7.4; Platelet Count 156 k/uL (150-450); RBC 3.06 m/uL (4.30-5.90); RDW 13.6 % (11.5-15.5); WBC 6.6 k/uL (3.8-10.6)
[2018-02-09 12:15] LABS: Albumin 3.5 g/dL (3.5-5.0); Bilirubin, Delta 0.4 mg/dL (0.0-0.2); C Reactive Protein 24.5 mg/L (<10.0); Calcium 10.2 mg/dL (8.4-10.2); Potassium 4.6 mmol/L (3.5-5.1); Total Bilirubin 0.4 mg/dL (0.2-1.3); Total Protein 6.1 g/dL (6.3-8.2)
[2018-02-09 12:41] LABS: Erythrocyte Sedimentation Rate 35 mm/hr (0-15)
== END | disposition home or self-care (01) ==
LOC: LABWHC1 10:32
PROVIDERS: ATTEND Family Medicine
DX: E11.621 Type 2 diabetes mellitus with foot ulcer (principal); L97.509 Non-pressure chronic ulcer of other part of unspecified foot with unspecified severity
CPT/HCPCS: 36415; 80053; 82248; 83036; 84134; 85027; 85652; 86140

== ENCOUNTER 2018-03-02 11:55 | Day surgery (SDC) | payer MEDICARE ==
[2018-03-01 13:47] VITALS: BMI 22.3
[~2018-03-02 11:55] MED LIST changes: +ERTAPENEM 1 GM in SODIUM CHLORIDE 0.9% 50 ML IVPB ONE; -FAMOTIDINE 20 MG/2 ML VIAL IV PRN; -HEPARIN SODIUM,PORCINE 5,000 UNIT/ML 1 ML VIAL SQ ONE; -HYDROmorphone 1 MG/ML 1 ML SYRINGE IVP PRN; -LIDOCAINE 1% 20 ML VIAL (10MG/ML) FOR IV START INTRADERMA PRN; -ONDANSETRON 4 MG/2 ML VIAL IVP ONE
[2018-03-02] MEDS ORDERED: LIDOCAINE 1% INJ 10MG/ML (20 ML MDV) ONE (12:09)
[2018-03-02] MEDS ORDERED: LIDOCAINE 1% INJ 10MG/ML (20 ML MDV) SQ ONE (12:25)
[2018-03-02 12:43] VITALS: RESP 18; TEMP 98
[2018-03-02 13:04] VITALS: BP 124/58; PULSE 64
--- NOTE | 2018-03-02 14:24 | IR ---
EXAMINATION TYPE: IR cvc insert >=5 years DATE OF EXAM: 03/02/2018 COMPARISON: NONE CLINICAL HISTORY: Infection Needs long-term intravenous access for antibiotics. PROCEDURE: After informed consent, the skin overlying the left basilic vein was localized with ultrasound and no jonathan to be compressible and patent. An ultrasound image was obtained and submitted on the patient's c [place]. The overlying skin was prepped and draped and Lidocaine was used for local anesthesia. A skin annette was made with a scalpel. Access was gained to the vein under ultrasound guidance with a 21 gau ge needle and a 0.018 inch wire was advanced. Access site was dilated with Peel-Away sheath and cath eter tailored to the appropriate length and advanced such that the distal tip is at the cavoatrial ju nction. Spot image was obtained verifying placement. Catheter was fixed to the skin and a sterile d ressing was placed following hemostasis. Catheter was aspirated and flushed with saline. Patient wa s discharged in stable condition without complication. Maximal barrier technique is utilized. Ultras ound image is documented on the chart. Ultrasound used with sterile technique. Fluoro time and fluoroscopic images submitted to document procedure: 38 intraoperative images, 1.5 mi nutes fluoroscopy time IMPRESSION: STATUS POST ULTRASOUND AND FLUOROSCOPIC GUIDED PICC LINE PLACEMENT, READY FOR USE. THIS PROCEDURE WAS PERFORMED BY THE UNDERSIGNED.
[2018-03-05 06:17] LABS: Glucose,Whole Blood 217 mg/dL (75-99)
== END 2018-03-02 14:00 | disposition home or self-care (01) ==
LOC: CATHCVL 11:55
PROVIDERS: ATTEND Radiology Diagnostic Radiology
DX: E11.621 Type 2 diabetes mellitus with foot ulcer (principal); E11.69 Type 2 diabetes mellitus with other specified complication; M86.9 Osteomyelitis, unspecified; I48.91 Unspecified atrial fibrillation; Z79.84 Long term (current) use of oral hypoglycemic drugs; J44.9 Chronic obstructive pulmonary disease, unspecified; E78.5 Hyperlipidemia, unspecified; E07.9 Disorder of thyroid, unspecified; M19.90 Unspecified osteoarthritis, unspecified site; I10 Essential (primary) hypertension; Z87.891 Personal history of nicotine dependence; Z79.82 Long term (current) use of aspirin; Z79.899 Other long term (current) drug therapy; Z88.5 Allergy status to narcotic agent
CPT/HCPCS: 36569; 76937; 77001; C1751; C1769; J2001; J1335

== ENCOUNTER → 2018-03-05 | Outpatient (CLI) | payer MEDICARE | END | disposition home or self-care (01) | LOC: RADUSWWP 09:02 | PROVIDERS: ATTEND Family Medicine | DX: E13.621 Other specified diabetes mellitus with foot ulcer (principal) | CPT/HCPCS: 93923 ==

== ENCOUNTER → 2018-03-20 | Outpatient (CLI) | payer MEDICARE ==
--- NOTE | 2018-03-20 23:13 | CT ---
EXAMINATION TYPE: CT hip RT wo con DATE OF EXAM: 03/20/2018 COMPARISON: None HISTORY: right hip pain following fall CT DLP: 371.5 mGycm Automated exposure control for dose reduction was used. Helical imaging through the right hip. Taylor l and sagittal reconstructions. FINDINGS: There is marginal spurring present. Subchondral geode formation is present. Hypertrophic change at th e acetabulum corresponds to some hypertrophic change along the femoral neck. Small ossific densities are noted at the level of the joint, suspect there may be some chondrocalcinosis. Joint space loss is present. There is no evident fracture or dislocation. Prostate calcifications are noted incidentally. Vascular calcifications are also present. Spurring pr esent at the right sacroiliac joint. Fluid is present at the level of the greater trochanter, there i s calcifications present, correlate for calcific tendinitis, bursitis. Prostate calcifications noted incidentally. IMPRESSION: OSTEOARTHRITIS, CONSIDER CRYSTAL DEPOSITION ARTHROPATHY, SYNOVIAL OSTEOCHONDROMATOSIS. POSSIBLE TROCH ANTERIC BURSITIS, CALCIFIC TENDINITIS. CORRELATE FOR POSSIBLE FEMORAL ACETABULAR IMPINGEMENT.
--- NOTE | 2018-03-21 08:27 | XR ---
Bilateral feet HISTORY: Nonhealing wounds, diabetes 3 views of each foot submitted on total of 6 images There is been interval bone destruction at the distal first metatarsal with lytic changes, hypertroph ic changes are present at the metatarsophalangeal joint of the right foot with remodeling the proxima l phalanx, there is joint space loss. There is associated soft tissue swelling at the first digits bi laterally. Arterial calcifications are present bilaterally. Hypertrophic change present at the tarsom etatarsal joints of the right foot, intertarsal joints bilaterally. There are plantar calcaneal spurs bilaterally. IMPRESSION: There is underlying arthropathy, correlate to exclude osteomyelitis at the first digit of the right foot. Correlate for cellulitis.
== END ==
LOC: RADCTMAIN 17:58
PROVIDERS: ATTEND Family Medicine
DX: M16.11 Unilateral primary osteoarthritis, right hip (principal); M19.072 Primary osteoarthritis, left ankle and foot; M19.071 Primary osteoarthritis, right ankle and foot; M25.561 Pain in right knee; Z88.5 Allergy status to narcotic agent; Z88.0 Allergy status to penicillin; Z91.048 Other nonmedicinal substance allergy status

== ENCOUNTER → 2018-04-30 | Outpatient (CLI) | payer MEDICARE ==
[2018-04-30 12:41] LABS: Basophils % (A) 1 %; Eosinophils # (A) 0.2 k/uL (0-0.7); Eosinophils % (A) 4 %; HCT 34.6 % (39.0-53.0); HGB 11.2 gm/dL (13.0-17.5); Lymphocytes % (A) 21 %; MCH 30.4 pg (25.0-35.0); MCHC 32.5 g/dL (31.0-37.0); MCV 93.6 fL (80.0-100.0); Mean Platelet Volume 7.4; Monocytes # (A) 0.4 k/uL (0-1.0); Monocytes % (A) 9 %; Neutrophils # (A) 2.8 k/uL (1.3-7.7); Neutrophils % (A) 62 %; Platelet Count 148 k/uL (150-450); RBC 3.69 m/uL (4.30-5.90); RDW 14.7 % (11.5-15.5); WBC 4.6 k/uL (3.8-10.6)
[2018-04-30 12:59] LABS: Appearance,Urine Cloudy (Clear); Bacteria,Urine Many /hpf; Bilirubin,Urine Negative (Negative); Blood,Urine Trace (Negative); Color,Urine Yellow; Glucose,Urine (UA) Negative (Negative); Ketones,Urine Negative (Negative); Leukocyte Esterase,Urine Large (Negative); Mucus,Urine Rare /hpf; Nitrite,Urine Negative (Negative); PH, Urine 5.5 (5.0-8.0); Protein,Urine 1+ (Negative); RBC,Urine 4 /hpf (0-5); Specific Gravity,Urine 1.013 (1.001-1.035); Urobilinogen,Urine <2.0 mg/dL (<2.0); WBC,Urine 144 /hpf (0-5)
[2018-04-30 18:35] LABS: Albumin 3.9 g/dL (3.80-4.90); Albumin/Globulin Ratio 1.95 (1.20-2.10); Anion Gap 6.1 mmol/L (4.00-12.00); Calcium 10.5 mg/dL (8.7-10.3); Carbon Dioxide 25.9 mmol/L (21.6-31.8); Phosphorus 3.6 mg/dL (2.4-5.1); Potassium 4.3 mmol/L (3.5-5.5); Total Bilirubin 0.2 mg/dL (0.3-1.2); Total Protein 5.9 g/dL (6.2-8.2)
[2018-04-30 18:39] LABS: Vitamin D 25 Hydroxy 47.5 ng/mL (30.0-100.0)
[2018-04-30 18:46] LABS: Parathyroid Hormone Intact 127.4 pg/mL (14.0-72.0)
[2018-04-30 20:17] LABS: Creatinine,Urine Random 64.8 mg/dL
[2018-04-30 20:42] LABS: Total Protein,Urine Random 104.5 mg/dL (0.0-13.5)
== END ==
LOC: LABWHC1 11:38
PROVIDERS: ATTEND Nurse Practitioner Adult Health
DX: E55.9 Vitamin D deficiency, unspecified (principal); M10.9 Gout, unspecified; E83.39 Other disorders of phosphorus metabolism; D63.1 Anemia in chronic kidney disease; N18.3 Chronic kidney disease, stage 3 (moderate)
CPT/HCPCS: 36415; 80053; 81001; 82306; 82570; 83970; 84100; 84156; 85025

== ENCOUNTER → 2018-05-17 | Outpatient (CLI) | payer MEDICARE ==
[2018-05-17 17:28] LABS: Appearance,Urine Cloudy (Clear); Bacteria,Urine Many /hpf; Bilirubin,Urine Negative (Negative); Blood,Urine Trace (Negative); Color,Urine Yellow; Glucose,Urine (UA) Negative (Negative); Ketones,Urine Negative (Negative); Leukocyte Esterase,Urine Large (Negative); Mucus,Urine Rare /hpf; Nitrite,Urine Negative (Negative); PH, Urine 5.5 (5.0-8.0); Protein,Urine 2+ (Negative); RBC,Urine 8 /hpf (0-5); Specific Gravity,Urine 1.013 (1.001-1.035); Squamous Epithelial Cell,Urine 1 /hpf (0-4); Urobilinogen,Urine <2.0 mg/dL (<2.0); WBC,Urine 182 /hpf (0-5)
[2018-05-18 05:00] LABS: Anion Gap 10.4 mmol/L (4.00-12.00); Calcium 10.9 mg/dL (8.7-10.3); Carbon Dioxide 25.6 mmol/L (21.6-31.8); Potassium 4.4 mmol/L (3.5-5.5)
== END | disposition home or self-care (01) ==
LOC: LABWHC1 15:26
PROVIDERS: ATTEND Nurse Practitioner Adult Health
DX: N18.3 Chronic kidney disease, stage 3 (moderate) (principal)
CPT/HCPCS: 36415; 80048; 81001; 87086